=== PATIENT | male | born 1995 | race Caucasian/White ===

== ENCOUNTER 2017-04-06 18:23 | Emergency (ER) | payer SELFPAY ==
[2017-04-06 18:36] VITALS: BP 116/69
--- NOTE | 2017-04-06 18:44 | EDM.PDOC ---
<Colt Bray - Last Filed: 04/06/17 21:22> ED HPI GENERAL MEDICAL PROBLEM - General Chief Complaint: Back Pain or Injury Stated Complaint: SIDE PAIN Time Seen by Provider: 04/06/17 18:41 - History of Present Illness INITIAL COMMENTS - FREE TEXT/NARRATIVE: Assuming care of patients seen by Dr. Kaur. Patient CT was negative for any acute findings as the results with patient need for follow-up with primary care and possible referral for MRI should he continue to have pain. CBC, CMP, CT of abdomen and pelvis #1 contusion #2 back/flank pain We'll give a brief run of gabapentin for pain and have follow-up with primary care - Related Data Allergies Allergy/AdvReac Type Severity Reaction Status Date / Time Penicillins Allergy Indigestion Verified 04/06/17 18:34 ? Home Meds: Home Meds Ondansetron HCl [Zofran] 4 mg PO Q8HR PRN #12 tablet 07/26/16 [Rx] Gabapentin [Neurontin] 300 mg PO TID #60 cap 04/06/17 [Rx] Course - Vital Signs Last Recorded V/S: Last Vital Signs Temp 36.6 C 04/06/17 18:34 Pulse 61 04/06/17 18:34 Resp 18 04/06/17 18:34 BP 116/69 04/06/17 18:34 Pulse Ox 98 04/06/17 18:34 - Orders/Labs/Meds Orders: Active Orders 24 hr Category Date Time Status Abdomen Pelvis w Cont [CT] Stat Exams 04/06/17 18:44 Taken Labs: Laboratory Tests 04/06/17 04/06/17 04/06/17 Range/Units 18:52 18:55 18:55 WBC 7.63 (4.0-11.0) K/uL RBC 5.03 (4.50-5.90) M/uL Hgb 16.0 (13.0-17.0) g/dL Hct 44.8 (38.0-50.0) % MCV 89.1 (80.0-98.0) fL MCH 31.8 (27.0-32.0) pg MCHC 35.7 (31.0-37.0) g/dL RDW Std Deviation 42.5 (28.0-62.0) fl RDW Coeff of Rachael 13 (11.0-15.0) % Plt Count 211 (150-400) K/uL MPV 9.50 (7.40-12.00) fL Neut % (Auto) 57.1 (48.0-80.0) % Lymph % (Auto) 28.4 (16.0-40.0) % [place] % (Auto) 11.3 (0.0-15.0) % Eos % (Auto) 2.8 (0.0-7.0) % Baso % (Auto) 0.4 (0.0-1.5) % Neut # (Auto) 4.4 (1.4-5.7) K/uL Lymph # (Auto) 2.2 (0.6-2.4) K/uL [place] # (Auto) 0.9 H (0.0-0.8) K/uL Eos # (Auto) 0.2 (0.0-0.7) K/uL Baso # (Auto) 0.0 (0.0-0.1) K/uL Nucleated RBC % 0.0 /100WBC Nucleated RBCs # 0 K/uL Sodium 141 (136-146) mmol/L Potassium 4.3 (3.5-5.1) mmol/L Chloride 106 (98-110) mmol/L Carbon Dioxide 28 (21-31) mmol/L BUN 15 (6.0-23.0) mg/dL Creatinine 1.0 (0.6-1.5) mg/dL Est Cr Clr Drug Dosing 122.26 mL/min Estimated GFR (MDRD) > 60.0 ml/min Glucose 87 (60-110) mg/dL Calcium 9.9 (8.8-10.8) mg/dL Total Bilirubin 0.7 (0.1-1.5) mg/dL AST 22 (5-40) IU/L ALT 14 (8-54) IU/L Alkaline Phosphatase 146 (40-150) Total Protein 7.3 (6.0-8.0) g/dL Albumin 4.5 (3.5-5.0) g/dL Globulin 2.8 (2.0-3.5) g/dL Albumin/Globulin Ratio 1.6 (1.3-2.8) Urine Color YELLOW Urine Appearance CLEAR Urine pH 7.0 (5.0-8.0) Ur Specific [place] 1.025 (1.001-1.035) Urine Protein NEGATIVE (NEGATIVE) mg/dL Urine Glucose (UA) NEGATIVE (NEGATIVE) mg/dL Urine Ketones NEGATIVE (NEGATIVE) mg/dL Urine Occult Blood NEGATIVE (NEGATIVE) Urine Nitrite NEGATIVE (NEGATIVE) Urine Bilirubin NEGATIVE (NEGATIVE) Urine Urobilinogen 1.0 (<2.0) EU/dL Ur Leukocyte Esterase NEGATIVE (NEGATIVE) Meds: Medications Discontinued Medications Generic Name Dose Route Start Last Admin Trade Name Natalie PRN Reason Stop Dose Admin Sodium Chloride 1,000 mls @ 999 mls/hr 04/06/17 18:47 04/06/17 19:00 Normal Saline IV 04/06/17 19:47 999 mls/hr .Bolus ONE Administration Iopamidol 100 ml 04/06/17 20:27 04/06/17 20:28 Isovue Multipack-370 (76%) IVPUSH 04/06/17 20:28 100 ml ONETIME STA Administration Departure - Departure Time of Disposition: 21:23 Disposition: Home, Self-Care 01 Condition: Good Clinical Impression: Contusion of flank Qualifiers: Encounter type: initial encounter Qualified Code(s): S30.1XXA - Contusion of abdominal wall, initial encounter - Discharge Information Prescriptions: Gabapentin [Neurontin] 300 mg PO TID #60 cap Instructions: Contusion Referrals: PCP,None [Primary Care Provider] - Forms: ED Department Discharge Additional Instructions: The following information is given to patients seen in the emergency department who are being discharged to home. This information is to outline your options for follow-up care. We provide all patients seen in our emergency department with a follow-up referral. The need for follow-up, as well as the timing and circumstances, are variable depending upon the specifics of your emergency department visit. If you don't have a primary care physician on staff, we will provide you with a referral. We always advise you to contact your personal physician following an emergency department visit to inform them of the circumstance of the visit and for follow-up with them and/or the need for any referrals to a consulting specialist. The emergency department will also refer you to a specialist when appropriate. This referral assures that you have the opportunity for follow-up care with a specialist. All of these measure are taken in an effort to provide you with optimal care, which includes your follow-up. Under all circumstances we always encourage you to contact your private physician who remains a resource for coordinating your care. When calling for follow-up care, please make the office aware that this follow-up is from your recent emergency room visit. If for any reason you are refused follow-up, please contact the [facility] Emergency Department at and asked to speak to the emergency department charge nurse. 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 He reported it and thought his pain would go away but it has been unchanged and continues. He denies any blood in his urine or stool, nausea , vomiting, abdominal pain or any radiating pain or numbness or tingling. Review of systems: As per history of present illness and below otherwise all systems reviewed and negative. Past medical history: As per history of present illness and as reviewed below otherwise noncontributory. Surgical history: As per history of present illness and as reviewed below otherwise noncontributory. Social history: No reported history of drug or alcohol abuse. Family history: As per history of present illness and as reviewed below otherwise noncontributory. Physical exam: General: Well developed, well nourished in NAD HEENT: Atraumatic, normocephalic, pupils reactive, negative for conjunctival pallor or scleral icterus, mucous membranes moist, throat clear, neck supple, nontender, trachea midline. Lungs: Clear to auscultation, breath sounds equal bilaterally, chest nontender. Heart: S1S2, regular, negative for clicks, rubs, or JVD. Abdomen: Soft, nondistended, nontender. Negative for masses or hepatosplenomegaly. Right flank tenderness mild ecchymosis Pelvis: Stable nontender. Genitourinary: Deferred. Rectal: Deferred. Extremities: Atraumatic, negative for cords or calf pain. Neurovascular unremarkable. Neuro: Awake, alert, oriented. Cranial nerves II through XII unremarkable. Cerebellum unremarkable. Motor and sensory unremarkable throughout. Exam nonfocal. Diagnostics: []CT abdomen pelvis results to be checked by Colt Gomez aware of patient Therapeutics: []Patient declined pain medicine Impression: []Right Flank contusion Plan: []Discharge per Asa with approval of Dr. Rosas Definitive disposition and diagnosis as appropriate pending reevaluation and review of above. right lower back Pain Score (Numeric/FACES): 7 Past Medical History - Past Health History Medical/Surgical History: Denies Medical/Surgical History Cardiovascular History: Reports: None Respiratory History: Reports: None Gastrointestinal History: Reports: None Genitourinary History: Reports: None Musculoskeletal History: Reports: None Neurological History: Reports: None Psychiatric History: Reports: None Endocrine/Metabolic History: Reports: None Hematologic History: Reports: None Immunologic History: Reports: None Oncologic (Cancer) History: Reports: None Dermatologic History: Reports: None - Infectious Disease History Infectious Disease History: Reports: None - Past Surgical History Head Surgeries/Procedures: Reports: None HEENT Surgical History: Reports: None Cardiovascular Surgical History: Reports: None Respiratory Surgical History: Reports: None GI Surgical History: Reports: None Male Surgical History: Reports: None Endocrine Surgical History: Reports: None Neurological Surgical History: Reports: None Musculoskeletal Surgical History: Reports: None Oncologic Surgical History: Reports: None Dermatological Surgical History: Reports: None Social & Family History - Family History Family Medical History: Noncontributory - Tobacco Use Smoking Status *Q: Never Smoker Years of Tobacco use: 3 Second Hand Smoke Exposure: No - Caffeine Use Caffeine Use: Reports: Coffee, Energy Drinks, Soda - Alcohol Use Days Per Week of Alcohol Use: 1 Number of Drinks Per Day: 8 Total Drinks Per Week: 8 - Recreational Drug Use Recreational Drug Use: No ED ROS GENERAL - Review of Systems Review Of Systems: See Below ED EXAM,LOWER BACK PAIN/INJURY - Physical Exam Exam: See Below (See history of present illness) Course - Orders/Labs/Meds Orders: Active Orders 24 hr Category Date Time Status Abdomen Pelvis w Cont [CT] Stat Exams 04/06/17 18:44 Taken Labs: Laboratory Tests 04/06/17 04/06/17 04/06/17 Range/Units 18:52 18:55 18:55 WBC 7.63 (4.0-11.0) K/uL RBC 5.03 (4.50-5.90) M/uL Hgb 16.0 (13.0-17.0) g/dL Hct 44.8 (38.0-50.0) % MCV 89.1 (80.0-98.0) fL MCH 31.8 (27.0-32.0) pg MCHC 35.7 (31.0-37.0) g/dL RDW Std Deviation 42.5 (28.0-62.0) fl RDW Coeff of Rachael 13 (11.0-15.0) % Plt Count 211 (150-400) K/uL MPV 9.50 (7.40-12.00) fL Neut % (Auto) 57.1 (48.0-80.0) % Lymph % (Auto) 28.4 (16.0-40.0) % [place] % (Auto) 11.3 (0.0-15.0) % Eos % (Auto) 2.8 (0.0-7.0) % Baso % (Auto) 0.4 (0.0-1.5) % Neut # (Auto) 4.4 (1.4-5.7) K/uL Lymph # (Auto) 2.2 (0.6-2.4) K/uL [place] # (Auto) 0.9 H (0.0-0.8) K/uL Eos # (Auto) 0.2 (0.0-0.7) K/uL Baso # (Auto) 0.0 (0.0-0.1) K/uL Nucleated RBC % 0.0 /100WBC Nucleated RBCs # 0 K/uL Sodium 141 (136-146) mmol/L Potassium 4.3 (3.5-5.1) mmol/L Chloride 106 (98-110) mmol/L Carbon Dioxide 28 (21-31) mmol/L BUN 15 (6.0-23.0) mg/dL Creatinine 1.0 (0.6-1.5) mg/dL Est Cr Clr Drug Dosing 122.26 mL/min Estimated GFR (MDRD) > 60.0 ml/min Glucose 87 (60-110) mg/dL Calcium 9.9 (8.8-10.8) mg/dL Total Bilirubin 0.7 (0.1-1.5) mg/dL AST 22 (5-40) IU/L ALT 14 (8-54) IU/L Alkaline Phosphatase 146 (40-150) Total Protein 7.3 (6.0-8.0) g/dL Albumin 4.5 (3.5-5.0) g/dL Globulin 2.8 (2.0-3.5) g/dL Albumin/Globulin Ratio 1.6 (1.3-2.8) Urine Color YELLOW Urine Appearance CLEAR Urine pH 7.0 (5.0-8.0) Ur Specific [place] 1.025 (1.001-1.035) Urine Protein NEGATIVE (NEGATIVE) mg/dL Urine Glucose (UA) NEGATIVE (NEGATIVE) mg/dL Urine Ketones NEGATIVE (NEGATIVE) mg/dL Urine Occult Blood NEGATIVE (NEGATIVE) Urine Nitrite NEGATIVE (NEGATIVE) Urine Bilirubin NEGATIVE (NEGATIVE) Urine Urobilinogen 1.0 (<2.0) EU/dL Ur Leukocyte Esterase NEGATIVE (NEGATIVE) Meds: Medications Discontinued Medications Generic Name Dose Route Start Last Admin Trade Name Justinq PRN Reason Stop Dose Admin Sodium Chloride 1,000 mls @ 999 mls/hr 04/06/17 18:47 04/06/17 19:00 Normal Saline IV 04/06/17 19:47 999 mls/hr .Bolus ONE Administration Iopamidol 100 ml 04/06/17 20:27 04/06/17 20:28 Isovue Multipack-370 (76%) IVPUSH 04/06/17 20:28 100 ml ONETIME STA Administration - My Orders Last 24 Hours: My Active Orders 04/06/17 18:44 Abdomen Pelvis w Cont [CT] Stat - Assessment/Plan Last 24 Hours: My Active Orders 04/06/17 18:44 Abdomen Pelvis w Cont [CT] Stat
[2017-04-06] MEDS ORDERED: Sodium Chloride 0.9% 250 ML IV SCH (18:45)
[2017-04-06] MEDS ORDERED: Sodium Chloride 0.9% 1,000 ML IV ONE (18:47)
[2017-04-06 19:32] LABS: CHLORIDE,CL 106 mmol/L (98-110); SODIUM,NA 141 mmol/L (136-146)
[2017-04-06] MEDS ORDERED: Iopamidol 755 MG/ML 500 ML Multipack Bottle IVPUSH STA (20:27)
--- NOTE | 2017-04-07 18:03 | CT ---
EXAM DATE: 04/06/17 PATIENT'S AGE: 21 Patient: KENAN ESPINOZA Facility: [place], [place] Site . Site : 1995 Study: CT Abdomen/Pelvis [id number]/[id number]/2017 8:21:20 PM Ordering Physician: Vincent Moreno Final Report: INDICATION: Right back pain after being struck by a metal pole 5 days ago TECHNIQUE: CT Abdomen and pelvis with IV contrast. Coronal and sagittal reformats were obtained. CONTRAST: 100 mL Isovue 370 COMPARISON: None FINDINGS: Lower chest: Unremarkable. Liver: Unremarkable. Spleen: Unremarkable. Pancreas: Unremarkable. Gallbladder: Unremarkable. Kidney: Unremarkable. No kidney or ureteral stones or obstruction seen. Adrenal: Unremarkable. GI tract: A moderate amount of stool is present within the rectal vault. The appendix is normal in appearance and size. Vascular: Unremarkable. Lymph: Unremarkable. Peritoneum: Unremarkable. No pneumoperitoneum is seen. No significant ascites is noted. Pelvis: Unremarkable. Soft tissue: Unremarkable. Bones: Unremarkable for age. Miscellaneous: Mild periportal edema is present which may be due to aggressive intravenous hydration. There is a 9 mm sclerotic lesion in the posterior left iliac bone which may represent a bone island. IMPRESSIONS: 1. Unremarkable with no CT correlate for the patient`s symptoms seen. Dictated by Fadi Chapman MD @ 04/06/2017 9:02:53 PM Dictated by: Fadi Chapman MD @ 04/06/2017 21:03:02 (Electronic Signature) Report Signed by Proxy. [facility]ITALMurray
== END 2017-04-06 21:36 | disposition home or self-care (01) ==
LOC: MW.ED 18:23
DX: S30.1XXA Contusion of abdominal wall, initial encounter (principal); Z88.0 Allergy status to penicillin; W22.8XXA Striking against or struck by other objects, initial encounter
CPT/HCPCS: 36415; 74177; 80053; 81003; 85025; 96360; 99284; J7040; Q9967; 99283